=== PATIENT | female | born 1985 | race American Indian/Alaskan Native ===

== ENCOUNTER 2019-05-13 10:01 | Emergency (ER) | payer SELFPAY ==
[2019-05-13 10:38] LABS: Bilirubin,Urine NEG (Negative); Blood,Urine NEG (Negative); Color,Urine Yellow (Yellow); Mucus,Urine FEW /HPF; Protein,Urine <15 mg/dL mg/dL (Negative); Urobilinogen,Urine < 2.0 mg/dL (<2.0); WBC,Urine < 1.0 /HPF (0.0-6.0)
[2019-05-13 10:43] LABS: HCG Qualitative,Urine Negative (Negative)
--- NOTE | 2019-05-13 10:55 | Emergency Department Report ---
ED Dysuria HPI - HPI Chief Complaint: Urogenital-Female Stated Complaint: POSSIBLE UTI Time Seen by Provider: 05/13/19 10:25 Duration: 3 Days Location of Discomfort: Suprapubic Severity: Mild Symptoms: Dysuria: Yes, Frequency: Yes, Suprapubic Pain: Yes, Flank Pain: No, Fever: No, Hematuria: No, Abdominal Pain: No, Previous UTI's: Yes ED Review of Systems ROS: Stated complaint: POSSIBLE UTI Other details as noted in HPI Comment: All other systems reviewed and negative ED Past Medical Hx - Past Medical History Previous Medical History?: No - Surgical History Past Surgical History?: No - Social History Smoking Status: Never Smoker Substance Use Type: None Dysuria Exam - Exam General: Vital signs noted. No distress. Alert and acting appropriately. Exam: Yes Moist Mucous Membranes, No CVA Tenderness, No Abdominal Tenderness, No Rigidity or Guarding Labs: Lab Results 05/13/19 Range/Units Unknown Urine Color Yellow (Yellow) Urine Turbidity Clear (Clear) Urine pH 6.0 (5.0-7.0) Ur Specific [place] 1.019 (1.003-1.030) Urine Protein <15 mg/dl (Negative) mg/dL Urine Glucose (UA) Neg (Negative) mg/dL Urine Ketones Neg (Negative) mg/dL Urine Blood Neg (Negative) Urine Nitrite Neg (Negative) Urine Bilirubin Neg (Negative) Urine Urobilinogen < 2.0 (<2.0) mg/dL Ur Leukocyte Esterase Neg (Negative) Urine WBC (Auto) < 1.0 (0.0-6.0) /HPF Urine RBC (Auto) 2.0 (0.0-6.0) /HPF U Epithel Cells (Auto) 2.0 (0-13.0) /HPF Urine Mucus Few /HPF Urine HCG, Qual Negative (Negative) ED Course Vital Signs 05/13/19 10:12 Temperature 99.0 F Pulse Rate 90 Respiratory 16 Rate Blood Pressure 129/63 [Right] O2 Sat by Pulse 99 Oximetry ED Medical Decision Making - Medical Decision Making 33-year-old male presents with a dysuria ED course: This and test were ordered prior to my evaluation of the patient Urinalysis is within normal limits. Negative for UTI, negative test. I discussed this findings with the patient. Patient is in no acute distress, patient also has on instructions were given to him. He had on exam for ED stay. Critical care attestation.: If time is entered above; I have spent that time in minutes in the direct care of this critically ill patient, excluding procedure time. ED Disposition Clinical Impression: Dysuria Disposition: MED SCREENING EXAM-LEFT Is pt being admited?: No Does the pt Need Aspirin: No Condition: Stable Instructions: Urinary Tract Infection in Women (ED), Dysuria (ED) Additional Instructions: Make sure to follow up with the primary care physician as discussed. Take all your medications as you've been prescribed. If you have any worsening symptoms or develop new symptoms please return to ED immediately. Referrals: [facility] [Outside] - 3-5 Days [facility] [Outside] - 3-5 Days GELACIO BROWNE MD [Staff Physician] - 3-5 Days Forms: Work/School Release Form(ED) Time of Disposition: 10:56
[2019-05-13 11:24] VITALS: BP 126/74
== END 2019-05-13 11:15 | disposition left against medical advice (07) ==
LOC: ED 10:01
DX: R30.0 Dysuria (principal); R35.0 Frequency of micturition; R10.2 Pelvic and perineal pain
CPT/HCPCS: 81001; 81025; 99282

== ENCOUNTER 2019-06-13 23:24 | Emergency (ER) | payer SELFPAY ==
[2019-06-13] MEDS ORDERED: ASPIRIN 325 MG TAB PO ONE (23:49)
[2019-06-14 00:12] LABS: Basophils # (Auto) 0.1 K/mm3 (0.0-0.1); Basophils % (Auto) 0.5 % (0.0-1.8); Eosinophils # (Auto) 0.1 K/mm3 (0.0-0.4); Eosinophils % (Auto) 0.6 % (0.0-4.3); Hematocrit 38.2 % (30.3-42.9); Hemoglobin 12.2 gm/dl (10.1-14.3); Lymphocytes # (Auto) 3.6 K/mm3 (1.2-5.4); Lymphocytes % (Auto) 33.6 % (13.4-35.0); Mean Corpuscular HGB Conc 32 % (30-34); Mean Corpuscular Volume 73 fl (79-97); Monocytes # (Auto) 0.7 K/mm3 (0.0-0.8); Platelet Count 304 K/mm3 (140-440); Red Blood Count 5.23 M/mm3 (3.65-5.03); Red Cell Distribution Width 14.9 % (13.2-15.2)
[2019-06-14 00:24] LABS: BUN/Creatinine Ratio 16; Blood Urea Nitrogen 11 mg/dL (7-17); Calcium 8.9 mg/dL (8.4-10.2); Hemolysis Index 22
--- NOTE | 2019-06-14 00:48 | XRay Report ---
CHEST 2 VIEWS INDICATION: MAIN: Chest Pain X2DAYS. COMPARISON: FINDINGS: Support devices: None. Heart: Within normal limits. Lungs: No acute air space or interstitial disease. Pleura: No significant pleural effusion. No pneumothorax. Additional findings: None. IMPRESSION: 1. No acute findings. Signer Name: Damion Lopez MD Signed: 06/14/2019 12:44 AM Workstation Name: [id number]
[2019-06-14] MEDS ORDERED: ONDANSETRON 4 MG/2 ML INJ IV ONE (01:03)
[2019-06-14] MEDS ORDERED: NITROGLYCERIN 2% OINT 1 GM TP ONE (01:03)
[2019-06-14] MEDS ORDERED: fentaNYL 100 MCG/2 ML INJ IV ONE (01:03)
--- NOTE | 2019-06-14 01:04 | Emergency Department Report ---
HPI - General Chief Complaint: Chest Pain Time Seen by Provider: 06/14/19 00:53 - HPI HPI: Room 5 The patient is a 33-year-old female present with a chief complaint of chest pain. Patient states her symptoms began 2 days ago with substernal chest pain described as a constant aching and sharpness. Patient states she also had intermittent numbness of the left upper extremity. Patient states she took a baby aspirin had helped somewhat but her pain never resolved. Patient denies shortness of breath nausea or vomiting with her chest pain but states sometimes her palms become diaphoretic. Patient denies pleurisy, cough, fever or recent flights/long car trips. Patient currently gives her chest pain score of 4-5/10. Patient states she is never had a stress test or cardiac catheterization ED Past Medical Hx - Past Medical History Previous Medical History?: No - Surgical History Past Surgical History?: No - Family History Family history: no significant - Social History Smoking Status: Current Some Day Smoker Substance Use Type: None (Denies illicit drug use), Alcohol (Occasional) ED Review of Systems ROS: Stated complaint: CHEST PAIN,HAND NUMBNESS Other details as noted in HPI Constitutional: diaphoresis Eyes: denies: eye pain ENT: denies: throat pain Respiratory: denies: shortness of breath Cardiovascular: chest pain Endocrine: no symptoms reported Gastrointestinal: denies: nausea, vomiting Genitourinary: denies: dysuria Musculoskeletal: denies: back pain Neurological: denies: headache Physical Exam - Physical Exam Vital Signs: Vital Signs 06/13/19 06/13/19 23:37 23:46 Temperature 98.6 F 98.6 F Pulse Rate 86 84 Respiratory 18 18 Rate Blood Pressure 119/58 119/58 O2 Sat by Pulse 100 100 Oximetry Physical Exam: GENERAL: The patient is well-developed well-nourished female lying on stretcher not appearing to be in acute distress. [] HEENT: Normocephalic. Atraumatic. Extraocular motions are intact. Patient has moist mucous membranes. NECK: Supple. Trachea midline CHEST/LUNGS: Clear to auscultation. There is no respiratory distress noted. HEART/CARDIOVASCULAR: Regular. There is no tachycardia. There is no gallop rub or murmur. ABDOMEN: Abdomen is soft, nontender. Patient has normal bowel sounds. There is no abdominal distention. SKIN: There is no rash. There is no edema. There is no diaphoresis. NEURO: The patient is awake, alert, and oriented. The patient is cooperative. The patient has normal speech MUSCULOSKELETAL: There is no evidence of acute injury. ED Course Vital Signs 06/13/19 06/13/19 23:37 23:46 Temperature 98.6 F 98.6 F Pulse Rate 86 84 Respiratory 18 18 Rate Blood Pressure 119/58 119/58 O2 Sat by Pulse 100 100 Oximetry ED Medical Decision Making - Lab Data Result diagrams: 06/13/19 23:53 06/13/19 23:53 Laboratory Tests 06/13/19 06/13/19 23:53 23:53 WBC 10.6 RBC 5.23 H Hgb 12.2 Hct 38.2 MCV 73 L MCH 23 L MCHC 32 RDW 14.9 Plt Count 304 Lymph % (Auto) 33.6 [place] % (Auto) 7.0 Eos % (Auto) 0.6 Baso % (Auto) 0.5 Lymph # 3.6 [place] # 0.7 Eos # 0.1 Baso # 0.1 Seg Neutrophils % 58.3 Seg Neutrophils # 6.2 Sodium 138 Potassium 3.7 Chloride 103.4 Carbon Dioxide 22 Anion Gap 16 BUN 11 Creatinine 0.7 Estimated GFR > 60 BUN/Creatinine Ratio 16 Glucose 105 H Calcium 8.9 Troponin T < 0.010 - EKG Data -: EKG Interpreted by Me EKG shows normal: sinus rhythm Rate: normal - EKG Data When compared to previous EKG there are: previous EKG unavailable Interpretation: other (No ischemic changes seen) - Radiology Data Radiology results: report reviewed (Chest x-ray), image reviewed (Chest x-ray) interpreted by me: Chest x-ray-no focal infiltrates, no pneumothorax [facility] [address] [place] [address] XRay Report Signed Patient: TARSHA LEE MR#: [id number] : 1985 Acct:[id number] Age/Sex: 33 / F ADM Date: 06/13/19 Loc: ED Attending Dr: Ordering Physician: ED MD MILTON Date of Service: 06/13/19 Procedure(s): XR chest routine 2V Accession Number(s): [id number] cc: ED DOCMD Fluoro Time In Minutes: CHEST 2 VIEWS INDICATION: MAIN: Chest Pain X2DAYS. COMPARISON: FINDINGS: Support devices: None. Heart: Within normal limits. Lungs: No acute air space or interstitial disease. Pleura: No significant pleural effusion. No pneumothorax. Additional findings: None. IMPRESSION: 1. No acute findings. Signer Name: Damion Lopez MD Signed: 06/14/2019 12:44 AM Workstation Name: [id number] Desai scribed By: WILBER Dictated By: Damion Lopez MD Electronically Authenticated By: Damion Lopez MD Signed Date/Time: [birth year]/14/1941 DD/ TD/TT: - Differential Diagnosis ACS, pericarditis, GERD Critical care attestation.: If time is entered above; I have spent that time in minutes in the direct care of this critically ill patient, excluding procedure time. ED Disposition Clinical Impression: Chest pain Disposition: DC-09 OP ADMIT IP TO THIS HOSP Is pt being admited?: Yes Does the pt Need Aspirin: Yes Condition: Fair Instructions: Chest Pain (ED) Time of Disposition: 01:04 (Hospitalist paged (Dr. Gale Shen)) FRANDY score - Frandy Score Aspirin use within the Past 7 Days: (1) Yes 3 or more CAD Risk Factors: (0) No 2 or more Angina events in past 24 hrs: (1) Yes Known CAD with more than 50% Stenosis: (0) No Elevated Cardiac Markers: (0) No ST Deviation Greater than 0.5mm: (0) No (2)
[2019-06-14 07:11] VITALS: BP 110/68
== END 2019-06-14 07:09 | disposition admitted as inpatient to this hospital (09) ==
LOC: ED 23:24
DX: R07.89 Other chest pain (principal); F17.200 Nicotine dependence, unspecified, uncomplicated
CPT/HCPCS: 36415; 71046; 80048; 84484; 85025; 93005; 93010; 96374; 96375; 99284; J2405; J3010

== ENCOUNTER 2020-01-05 22:14 | Emergency (ER) | payer OTHER ==
[2020-01-06 01:53] VITALS: BP 128/74
== END 2020-01-06 02:30 | disposition left against medical advice (07) ==
LOC: ED 22:14
DX: R07.0 Pain in throat (principal); Z53.21 Procedure and treatment not carried out due to patient leaving prior to being seen by health care provider

== ENCOUNTER 2020-07-05 17:37 | Emergency (ER) | payer OTHER ==
[2020-07-05 17:54] VITALS: BP 123/56
--- NOTE | 2020-07-05 20:23 | Emergency Department Report ---
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 Symptoms are exacerbated by position and movement. Symptoms are relieved by rest. Patient denies history of asthma. There is no shortness of breath no stridor no wheezing. T-max 100.1 at home. Vital signs noted today within normal range. There is no ear and mild throat pain with swallowing.. - Related Data Previous Rx's Medication Instructions Recorded Last Taken Type Amoxicillin/Potassium Clav 1 each PO BID 7 Days #14 tablet 07/05/20 Unknown Rx [Augmentin 875-125 Tablet] Ibuprofen [Motrin 800 MG tab] 800 mg PO Q8HR PRN #30 tablet 07/05/20 Unknown Rx predniSONE [Deltasone] 20 mg PO QDAY 5 Days #5 tab 07/05/20 Unknown Rx Allergies Allergy/AdvReac Type Severity Reaction Status Date / Time No Known Allergies Allergy Verified 01/05/20 22:30 ED Review of Systems ROS: Stated complaint: SINUS INFECTION Other details as noted in HPI Constitutional: fever, malaise Eyes: denies: eye pain, eye discharge, vision change ENT: throat pain, congestion, other (sinus pain and congestion) Respiratory: denies: cough, shortness of breath, wheezing Cardiovascular: denies: chest pain, palpitations Endocrine: no symptoms reported Gastrointestinal: denies: abdominal pain, nausea, diarrhea Genitourinary: denies: urgency, dysuria, discharge Musculoskeletal: denies: back pain, joint swelling, arthralgia Skin: denies: rash, lesions Neurological: denies: headache, weakness, paresthesias Psychiatric: denies: anxiety, depression Hematological/Lymphatic: denies: easy bleeding, easy bruising ED Past Medical Hx - Past Medical History Previous Medical History?: No - Surgical History Past Surgical History?: No - Social History Smoking Status: Current Every Day Smoker Substance Use Type: None - Medications Home Medications: Home Medications Medication Instructions Recorded Confirmed Last Taken Type Amoxicillin/Potassium Clav 1 each PO BID 7 Days #14 tablet 07/05/20 Unknown Rx [Augmentin 875-125 Tablet] Ibuprofen [Motrin 800 MG tab] 800 mg PO Q8HR PRN #30 tablet 07/05/20 Unknown Rx predniSONE [Deltasone] 20 mg PO QDAY 5 Days #5 tab 07/05/20 Unknown Rx ED Physical Exam - General Limitations: No Limitations General appearance: alert, in no apparent distress - Head Head exam: Present: atraumatic, normocephalic - Eye Eye exam: Present: PERRL, EOMI Pupils: Present: normal accommodation - ENT ENT exam: Present: mucous membranes moist, TM's normal bilaterally, normal external ear exam, other (bilat maxillary sinus pain no swelling no erythem; turbinates boggy yellow drainage, airway patent uvula midline no stridor) - Neck Neck exam: Present: normal inspection, full ROM. Absent: tenderness, lymphad enopathy - Respiratory Respiratory exam: Present: normal lung sounds bilaterally. Absent: respiratory distress, wheezes, stridor, chest wall tenderness - Cardiovascular Cardiovascular Exam: Present: regular rate, normal rhythm, normal heart sounds. Absent: systolic murmur, diastolic murmur, rubs, gallop - GI/Abdominal GI/Abdominal exam: Present: soft, normal bowel sounds. Absent: distended, tenderness - Rectal Rectal exam: Present: deferred - Extremities Exam Extremities exam: Present: normal inspection, full ROM. Absent: tenderness - Back Exam Back exam: Present: normal inspection, full ROM. Absent: tenderness - Neurological Exam Neurological exam: Present: alert, oriented X3, CN II-XII intact, normal gait - Psychiatric Psychiatric exam: Present: normal affect, normal mood - Skin Skin exam: Present: warm, dry, intact, normal color. Absent: rash ED Course Vital Signs 07/05/20 17:53 Temperature 99.8 F H Pulse Rate 82 Respiratory 17 Rate Blood Pressure 123/56 [Right] O2 Sat by Pulse 99 Oximetry ED Medical Decision Making - Medical Decision Making this is sinusitis , UTI , plan: augmentin, ibuprofen, prednisone follow up with pcp in 2-3 days, return to [facility] if symptoms worsen. Pt verbalized agreement and understanding of discharge plan. Critical care attestation.: If time is entered above; I have spent that time in minutes in the direct care of this critically ill patient, excluding procedure time. ED Disposition Clinical Impression: Sinusitis Qualifiers: Sinusitis location: maxillary Chronicity: unspecified Qualified Code(s): J32.0 - Chronic maxillary sinusitis Disposition: DC-01 TO HOME OR SELFCARE Is pt being admited?: No Does the pt Need Aspirin: No Condition: Stable Instructions: Sinusitis, Adult, Tona-uj-Amgn Prescriptions: Amoxicillin/Potassium Clav [Augmentin 875-125 Tablet] 1 each PO BID 7 Days #14 tablet predniSONE [Deltasone] 20 mg PO QDAY 5 Days #5 tab Ibuprofen [Motrin 800 MG tab] 800 mg PO Q8HR PRN #30 tablet PRN Reason: pain fever Referrals: WYATT PIZARRO MD [Staff Physician] - 3-5 Days Forms: Work/School Release Form(ED)
== END 2020-07-05 21:00 | disposition home or self-care (01) ==
LOC: ED 17:37
DX: J32.9 Chronic sinusitis, unspecified (principal); F17.200 Nicotine dependence, unspecified, uncomplicated; Z79.899 Other long term (current) drug therapy
CPT/HCPCS: 99282